=== PATIENT | female | born 1950 | race Caucasian/White ===

== ENCOUNTER 2019-01-12 10:16 | Inpatient (IN) ==
[2019-01-12] MEDS ORDERED: SODIUM CHLORIDE 0.9% INJ PRN (11:30)
--- NOTE | 2019-01-12 11:44 | EKG Report ---
Test Performed on : 01/12/2019 11:28:07 AM Test Reason : CHOLECYSTITIS Blood Pressure : / mmHG Vent. Rate : 131 BPM Atrial Rate : 131 BPM P-R Int : 122 ms QRS Dur : 142 ms QT Int : 344 ms P-R-T Axes : 104 028 -20 degrees QTc Int : 507 ms Sinus tachycardia. Right bundle branch block T wave abnormality, consider inferior ischemia Abnormal ECG When compared with ECG of 08-JAN-2013 06:21, Vent. rate has increased BY 56 BPM Nonspecific T wave abnormality now evident in Anterior leads Confirmed by William CASTILLO, Pepe ([id number]) on 01/13/2019 11:38:25 AM
[2019-01-12 12:01] LABS: BASO# 0.03 X1000 (0.0-0.2); BASO% 0.4 % (0.0-0.8); EOS# 0.04 X1000 (0.0-0.7); EOS% 0.5 % (0.0-10.0); HEMATOCRIT 38.3 % (37.0-47.0); HEMOGLOBIN 11.8 g/dL (12.0-16.0); LYMPH# 1.71 X1000 (1.2-3.4); MCH 24.1 PG (27-31); MCHC 30.8 g/dL (33-37); MCV 78.3 FL (81-99); MONO# 0.71 X1000 (0.11-0.59); MONO% 9.1 % (1.7-9.3); MPV 10.1 FL (7.4-10.4); PLT 344 X1000 (130-400); RBC 4.89 XMIL (4.2-5.4); RDW 15.6 % (11.5-14.5); WBC 7.79 X1000 (4.8-10.8)
[2019-01-12] MEDS: D5 1/2 NS + KCL 20 MEQ 1,000 ML IV SCH (12:14)
[2019-01-12 12:24] LABS: ALB/GLOB RATIO 1.3; ALBUMIN 4.1 g/dL (3.5-5.0); CALCIUM 9.9 mg/dL (8.8-10.2); POTASSIUM 3.7 mmol/L (3.5-5.1); TOTAL BILIRUBIN 1.21 mg/dL (0.20-1.00); TOTAL PROTEIN 7.3 g/dL (6.3-8.3)
[2019-01-12] MEDS: ZOSYN 3.375 GM in NS 50 ML IV SCH ×3 (12:24→23:13)
--- NOTE | 2019-01-12 13:41 | Diag Imaging Result Doc PS360 ---
EXAM: CHEST-2 VIEWS HISTORY: ACUTE CHOLECYSTITIS TECHNIQUE: Chest two views COMPARISON: 01/07/2013 FINDINGS: The lungs are hyperexpanded. The heart is not enlarged. The vessels are not distended. There are no infiltrates. No pleural effusions. There is a moderate sized hiatal hernia. IMPRESSION: No acute abnormality. Electronically signed by Viet Holcomb 01/12/2019 1:39 PM
--- NOTE | 2019-01-12 13:57 | Diag Imaging Result Doc PS360 ---
EXAM: CT ABD/PELVIS W/PO AND IV CON HISTORY: ACUTE CHOLECYSTITIS TECHNIQUE: CT abdomen and pelvis with intravenous contrast COMPARISON: None. FINDINGS: There is a large hiatal hernia. The gallbladder is distended. There is mild wall thickening. No calcified stones. There is fatty infiltration of the liver. Normal spleen, pancreas, and adrenal glands. There is a 2.1 cm right renal cyst. No hydronephrosis. No aortic aneurysm. Moderate atherosclerosis. No inflammation about the cecum. No abscess. Oral contrast has passed through the small bowel into the colon. No bowel obstruction. There are several colonic diverticula. Normal uterus. No pelvic mass. The urinary bladder is distended and is normal. IMPRESSION: 1.CT findings suspicious for acute cholecystitis 2.Fatty infiltration of the liver 3.Large hiatal hernia 4.Right renal cyst 5.Scattered colonic diverticula This exam was performed using automated exposure control, adjustment of mA or kV according to patient size, and/or use of iterative reconstruction technique. Electronically signed by Viet Holcomb 01/12/2019 1:55 PM
[2019-01-12 14:14] LABS: URINE SOURCE CLEAN CATCH
[2019-01-12 14:17] LABS: BILIRUBIN URINE NEGATIVE (NEGATIVE); BLOOD URINE NEGATIVE (NEGATIVE); COLOR YELLOW; GLUCOSE URINE NEGATIVE (NEGATIVE); KETONE URINE NEGATIVE (NEGATIVE); LEUKOCYTES URINE NEGATIVE (NEGATIVE); NITRITE URINE NEGATIVE (NEGATIVE); PROTEIN URINE NEGATIVE (NEGATIVE); SP GRAVITY URINE 1.026; TURBIDITY URINE CLEAR (CLEAR); UR EPITHELIAL CELLS <10 /HPF (<10); URINE BACTERIA NEGATIVE /HPF; URINE RBC <10 /HPF (<10); URINE WBC <10 /HPF (<10); UROBILINOGEN URINE NORMAL (NORMAL)
[2019-01-12] MEDS: PHENERGAN IV PRN ×2 (14:36→18:47)
[2019-01-12] MEDS ORDERED: PNEUMOVAX 23 IM ONE (18:00)
[2019-01-12] MEDS: NORCO-10 PO PRN (21:46)
[2019-01-12] MEDS: LIPITOR PO SCH (21:46)
[2019-01-12] MEDS: GLUCOPHAGE PO SCH (21:47)
[2019-01-13] MEDS: ZOSYN 3.375 GM in NS 50 ML IV SCH ×5 (05:12→23:32)
[2019-01-13] MEDS: D5 1/2 NS + KCL 20 MEQ 1,000 ML IV SCH ×2 (05:12→20:46)
[2019-01-13] MEDS: PRILOSEC PO SCH ×2 (06:12→11:12)
[2019-01-13] MEDS ORDERED: MARCAINE 0.25% PF/EPI 1:200,000 ONE (06:56)
[2019-01-13] MEDS ORDERED: LR 1,000 ML ONE (06:56)
[2019-01-13] MEDS ORDERED: SODIUM CHLORIDE 0.9% ONE (06:56)
[2019-01-13] MEDS ORDERED: QUELICIN (DOSE) ONE (07:15)
[2019-01-13] MEDS ORDERED: ROBINUL ONE ×2 (07:15→08:14)
[2019-01-13] MEDS ORDERED: XYLOCAINE-MPF 2% ONE (07:15)
[2019-01-13] MEDS ORDERED: DIPRIVAN 1% ONE (07:16)
--- NOTE | 2019-01-13 07:52 | PROGRESS NOTE ---
DATE: 01/13/2019 Ms. Wall is a 68-year-old white female who presented to our outpatient office yesterday with at least one week history of right upper quadrant discomfort radiating to her back. In 2017, she had studies involving her gallbladder. Clinically, this was felt to be symptomatic cholecystitis. Because of how poorly she was feeling, she was admitted with a diagnosis of acute cholecystitis which was confirmed by CT scan yesterday We will plan to perform cholecystectomy this morning. We had to wait 48 hours with her off her Xarelto. Her heart rate is 88, blood pressure 152/59. O2 saturation 94%. She is afebrile on IV Zosyn. Her white blood cell count is 7.8, hematocrit 38%. Her liver function tests were elevated. Her BUN and creatinine are 21 and 1.0. Her chest x-ray is clear. EKG has no acute changes. PLAN: I have discussed laparoscopic cholecystectomy with her and her . They understand the need for the surgery and want to proceed. We specifically discussed risks of surgery which include bleeding, infection, injury to the extrahepatic bile ducts requiring reoperation, conversion of laparoscopic to open cholecystectomy, bile leak requiring reoperation for drainage and injury to intraabdominal contents with trocar placement. cc: Cierra Reich MD
[2019-01-13] MEDS ORDERED: STERILE WATER INJ. ONE (08:14)
[2019-01-13] MEDS ORDERED: NORCURON ONE (08:14)
[2019-01-13] MEDS ORDERED: ZOFRAN ONE (08:14)
[2019-01-13] MEDS ORDERED: DECADRON ONE (08:14)
[2019-01-13] MEDS ORDERED: EPHEDRINE ONE (08:16)
[2019-01-13] MEDS ORDERED: FENTANYL ONE (08:21)
[2019-01-13] MEDS ORDERED: NEOSTIGMINE ONE (08:21)
[2019-01-13] MEDS ORDERED: NEO-SYNEPHRINE ONE (08:32)
[2019-01-13] MEDS ORDERED: SODIUM CHLORIDE 0.9% 10 ML ONE (08:32)
--- NOTE | 2019-01-13 09:13 | Diag Imaging Result Doc PS360 ---
OPERATIVE CHOLANGIOGRAM - 01/13/2019 INDICATION: GALLBLADDER DX TECHNIQUE: The exam was performed by the patient's surgeon. Total fluoroscopy time was 24 seconds. One image was obtained. COMPARISON: CT from 01/12/2019 FINDINGS: Contrast was infused into the cystic duct. This outlines a normal common bile duct. There is good passage of contrast into the duodenum. IMPRESSION: No complication. Electronically signed by Parker Kwan 01/13/2019 9:10 AM
--- NOTE | 2019-01-13 09:51 | OPERATIVE NOTE ---
PROCEDURE DATE: PREOPERATIVE DIAGNOSIS: Acute cholecystitis. POSTOPERATIVE DIAGNOSIS: Acute cholecystitis. PRINCIPAL PROCEDURE: Laparoscopic cholecystectomy with intraoperative cholangiogram. SURGEON: Cierra Reich MD. ANESTHESIA: General in addition to local anesthetic. ESTIMATED BLOOD LOSS: 20 mL. DRAINS: None. INDICATIONS: Ms Mae Wall is a 68-year-old, white female, patient of Dr. YESENIA Velasquez, who has a week history of abdominal pain localized to her right upper quadrant and radiating to her back. In 2017, she had gallbladder studies which showed abnormal HIDA scan but no stones. Clinically, it was felt that she was having gallbladder symptoms. She was on Xarelto and that had to be stopped for 48 hours prior to surgery. FINDINGS: She had acute cholecystitis. I palpated no stones within the gallbladder. She had a long cystic duct. I did do an intraoperative cholangiogram, which showed free flow of the dye into the duodenum without evidence of extrahepatic stones or obstruction. Her liver appeared to be healthy as did the surface of the bowel. No other intra-abdominal pathology was noted. I felt I did the operation safely. DESCRIPTION OF PROCEDURE: The patient was brought to the operating room, placed supine, received general anesthesia, was intubated. Her abdomen was prepped and draped in a sterile field. She was already on IV Zosyn. I made a small incision below the umbilicus using a 15 blade scalpel. Veress needle was introduced through this incision into the abdomen. Pneumoperitoneum was established. The Veress needle was removed and we placed an 11 mm trocar through this incision into the abdomen. The camera was placed through this port, and the abdomen was explored for injury, there was none. Three other trocars were placed along the right costal margin under direct vision of the camera. I placed an 11 mm trocar just to the right of the midline and two 5 mm trocars in our midclavicular and anterior axillary lines. Through our most lateral port, the gallbladder was grasped and retracted superiorly along with the right lobe of the liver. Another grasper was used to grab the body of the gallbladder and the triangle of Calot was bluntly dissected. We identified the cystic artery along its length. We placed a clip at the cystic artery gallbladder junction and 2 proximally, and it was divided using hook scissors. The cystic duct was dissected along its length. I placed a clip at the cystic duct gallbladder junction. I made a small incision in the cystic duct using hook scissors and a taut intraoperative cholangiogram catheter was used to perform the cholangiogram with the findings above. Once the cholangiogram was completed, I removed this catheter and 2 clips were placed proximally on the cystic duct and I divided the cystic duct between clips using hook scissors. The spatula cautery was used to remove the gallbladder from the liver bed. At this time, the PSYCHOTHERAPIST COUNSELOR told me that she had some bile reflux up into her mouth which was sucked out. She was intubated. We removed the gallbladder through our umbilical incision. I placed the trocar back through this incision and the area of operation was thoroughly inspected, irrigated, and the irrigation was removed with suction. There was no evidence of ongoing bleeding or bile leak. No drains were left. All trocars removed under direct vision of the camera. The pneumoperitoneum was allowed to dissipate. I used [id number] 2-0 Vicryl stitches to reapproximate the fascia below the umbilicus and all skin was closed with 4-0 Monocryl subcuticular stitches. Steri-Strips were applied. Plans are for her to go to the recovery room and then be discharged home later today under the care of her with followup in my outpatient office in 7 to 10 days. cc: Cierra Reich MD
[2019-01-13] MEDS: MORPHINE IV PRN ×3 (10:23→18:30)
[2019-01-13] MEDS: PHENERGAN IV PRN (10:24)
[2019-01-13] MEDS: HYDROCHLOROTHIAZIDE PO SCH (11:14)
[2019-01-13] MEDS: ZIAC 10/6.25 MG PO SCH (11:14)
[2019-01-13] MEDS: DIOVAN PO SCH (11:14)
[2019-01-13] MEDS: GLUCOPHAGE PO SCH ×2 (20:42→23:07)
[2019-01-13] MEDS: LIPITOR PO SCH (20:42)
[2019-01-13] MEDS: PERIDEX MT SCH (20:43)
[2019-01-13] MEDS: NORCO-10 PO PRN (23:32)
[2019-01-14] MEDS: D5 1/2 NS + KCL 20 MEQ 1,000 ML IV SCH (05:54)
[2019-01-14] MEDS: ZOSYN 3.375 GM in NS 50 ML IV SCH (06:25)
[2019-01-14] MEDS: PRILOSEC PO SCH (06:25)
[2019-01-14 07:23] VITALS: BP 136/55
[2019-01-14] MEDS: PERIDEX MT SCH (08:45)
[2019-01-14] MEDS: HYDROCHLOROTHIAZIDE PO SCH (08:45)
[2019-01-14] MEDS: ZIAC 10/6.25 MG PO SCH (08:45)
[2019-01-14] MEDS: DIOVAN PO SCH (08:45)
[2019-01-14] MEDS: NORCO-10 PO PRN (08:46)
--- NOTE | 2019-01-14 20:02 | DISCHARGE SUMMARY ---
ADMISSION DATE: 01/12/2019 DISCHARGE DATE: 01/14/2019 ADMITTING DIAGNOSIS: Acute cholecystitis. DISCHARGE DIAGNOSIS: Acute cholecystitis. PRINCIPAL PROCEDURE: Laparoscopic cholecystectomy with intraoperative cholangiogram on 01/13/2019. DISCHARGE DISABILITY: Full. DISCHARGE DISPOSITION: She will return to our outpatient offices in a week. DISCHARGE MEDICATIONS: She is to return to her home medications. DISCHARGE DIET: Regular. HOSPITAL COURSE: Ms. Mae Wall is a 68-year-old overweight white female patient Dr. YESENIA Velasquez who I evaluated in my outpatient office on the day of her admission after she has had a week long history of upper abdominal discomfort. She was on a blood thinner and she had to be off that blood thinner for 48 hours prior to any surgery. Because she was ill in our outpatient office she was admitted and rehydrated the day prior to surgery. On 01/13/2019 she went to surgery and underwent a laparoscopic cholecystectomy with intraoperative cholangiogram for acute cholecystitis. At the time of surgery, no drains were left. Her cholangiogram was normal. She was hospitalized from the recovery room. She had nausea the day after surgery but today postop day 1 her nausea has improved. She is tolerating liquids and she is ambulating in the halls. It is felt safe to discharge her home under the care of her with followup in our outpatient offices in a week. She knows to contact us with any increasing abdominal pain or fever. On the time of discharge her heart rate was 88 to 94, blood pressure 136/55, O2 saturation 96%. She is afebrile. cc: MD Jadiel Barrow
== END 2019-01-14 11:51 | disposition home or self-care (01) | DRG 419 ==
LOC: DIRADM 10:16 → 4N 10:50
PROVIDERS: ADMIT Surgery; ATTEND Surgery
CPT/HCPCS: 71020; 71046; 74177; 74300; 80053; 81001; 85025; 88304; 90732; 93005; 93010; 94760; 94761; 94799; A9270; C1751; J0330; J1100; J2270; J2370; J2405; J2543; J2550; J3010; J3480; J7120; Q9966; Q9967